=== PATIENT | female | born 1930 | race American Indian/Alaskan Native ===

== ENCOUNTER 2017-02-03 09:08 | Emergency (ER) | payer MEDICARE ==
[2017-02-03 12:20] LABS: Basophils # (Auto) 0.1 K/mm3 (0.0-0.1); Eosinophils # (Auto) 0.2 K/mm3 (0.0-0.4); Eosinophils % (Auto) 1.3 % (0.0-4.3); Hematocrit 45.6 % (30.3-42.9); Hemoglobin 14.7 gm/dl (10.1-14.3); Lymphocytes # (Auto) 1.4 K/mm3 (1.2-5.4); Lymphocytes % (Auto) 11.8 % (13.4-35.0); Mean Corpuscular HGB Conc 32 % (30-34); Mean Corpuscular Hemoglobin 31 pg (28-32); Mean Corpuscular Volume 96 fl (79-97); Monocytes # (Auto) 0.9 K/mm3 (0.0-0.8); Monocytes % (Auto) 7.9 % (0.0-7.3); Platelet Count 142 K/mm3 (140-440); Red Blood Count 4.76 M/mm3 (3.65-5.03); Red Cell Distribution Width 15.7 % (13.2-15.2)
[2017-02-03 12:30] LABS: INR 1.08 (0.87-1.13)
[2017-02-03 12:31] LABS: Partial Thromboplastin Time 25.8 Sec. (24.2-36.6)
[2017-02-03] MEDS ORDERED: MOTRIN PO ONE (12:42)
[2017-02-03] MEDS ORDERED: NORCO PO ONE (12:42)
--- NOTE | 2017-02-03 12:49 | Emergency Department Report ---
HPI - General Chief Complaint: Earache Time Seen by Provider: 02/03/17 11:29 - HPI HPI: Room 5 The patient is an 86-year-old female presented with a chief complaint of left ear pain. The patient states since last night she developed throbbing pain in her left ear. Patient states that also hurts when she chews and she has a sore throat when she swallows. Patient was to chronic cough from her COPD. Patient denies any history of fever. Patient denies any recent trauma. Patient admitted to epistaxis earlier this morning. The patient currently gives her pain score of 10/10 Location: Left ear, throat Duration: Constant since last night Quality: Throbbing Severity: 10/10 Modifying factors: [see above] Context: [see above] Mode of transportation: [not driving] ED Past Medical Hx - Past Medical History Hx Hypertension: Yes Hx Congestive Heart Failure: Yes Hx COPD: Yes (2 L home O2) Additional medical history: Coronary artery disease - Surgical History Past Surgical History?: Yes Additional Surgical History: LEFT HIP REPLACEMENT. OPEN HEART SURGERY=3 BLOCKAGES - Family History Family history: no significant - Social History Smoking Status: Former Smoker (none since 1994) Substance Use Type: None - Medications Home Medications: Home Medications Medication Instructions Recorded Confirmed Last Taken Type Amoxicillin [Amoxicillin 250 MG/5 500 mg PO BID #140 ml 02/03/17 Unknown Rx Ml] HYDROcodone/ACETAMINOPHEN [Lortab 15 ml PO Q6H PRN #300 ml 02/03/17 Unknown Rx 10 mg-300 mg per 15 ML ORAL LIQ] ED Review of Systems ROS: Stated complaint: L SIDE FACE PAIN Other details as noted in HPI Constitutional: denies: fever ENT: ear pain, throat pain, epistaxis Respiratory: cough Physical Exam - Physical Exam Vital Signs: Vital Signs 02/03/17 09:41 Temperature 98.0 F Pulse Rate 94 H Respiratory 18 Rate Blood Pressure 159/87 O2 Sat by Pulse 98 Oximetry Physical Exam: GENERAL: The patient is well-developed well-nourished female lying on stretcher not appearing to be in acute distress. [] HEENT: Normocephalic. Atraumatic. Extraocular motions are intact. Patient has moist mucous membranes. TMs clear bilaterally. No evidence of erythema in the pharynx visualized NECK: Supple. No meningitic signs are noted. There is tender left submandibular lymphadenopathy CHEST/LUNGS: Clear to auscultation. There is no respiratory distress noted. HEART/CARDIOVASCULAR: Regular. There is no tachycardia. There is no gallop rub or murmur. ABDOMEN: Abdomen is soft, nontender. Patient has normal bowel sounds. There is no abdominal distention. SKIN: There is no rash. There is no edema. There is no diaphoresis. NEURO: The patient is awake, alert, and oriented. The patient is cooperative.The patient has normal speech MUSCULOSKELETAL: There is no evidence of acute injury. ED Course Vital Signs 02/03/17 09:41 Temperature 98.0 F Pulse Rate 94 H Respiratory 18 Rate Blood Pressure 159/87 O2 Sat by Pulse 98 Oximetry ED Medical Decision Making - Lab Data Result diagrams: 02/03/17 11:46 Laboratory Tests 02/03/17 02/03/17 02/03/17 11:46 11:46 11:46 WBC 11.9 H RBC 4.76 Hgb 14.7 H Hct 45.6 H MCV 96 MCH 31 MCHC 32 RDW 15.7 H Plt Count 142 Lymph % (Auto) 11.8 L [place] % (Auto) 7.9 H Eos % (Auto) 1.3 Baso % (Auto) 1.0 Lymph # 1.4 [place] # 0.9 H Eos # 0.2 Baso # 0.1 Seg Neutrophils % 78.0 H Seg Neutrophils # 9.3 H PT 14.6 INR 1.08 APTT 25.8 Sodium 139 Potassium 3.8 Chloride 98.3 Carbon Dioxide 27 Anion Gap 18 BUN 25 H Creatinine 0.8 Estimated GFR > 60 BUN/Creatinine Ratio 31 Glucose 95 Calcium 9.5 Total Bilirubin 0.70 Direct Bilirubin 0.2 Indirect Bilirubin 0.5 AST 24 ALT 15 Alkaline Phosphatase 77 Total Protein 6.9 Albumin 3.7 L Albumin/Globulin Ratio 1.2 - Differential Diagnosis otitis media, pharyngitis, TMJ syndrome Critical care attestation.: If time is entered above; I have spent that time in minutes in the direct care of this critically ill patient, excluding procedure time. ED Disposition Clinical Impression: Left ear pain, Sore throat Disposition: DC-01 TO HOME OR SELFCARE Is pt being admited?: No Does the pt Need Aspirin: No Condition: Stable Instructions: Earache (ED) Additional Instructions: Return to the emergency department immediately should you develop worsening symptoms, fever, inability to tolerate food or liquid or any other concerns. 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 Please follow up with her for further evaluation) Time of Disposition: 12:51
[2017-02-03 12:50] LABS: Alanine Aminotransferase 15 units/L (7-56); Albumin 3.7 g/dL (3.9-5); BUN/Creatinine Ratio 31; Bilirubin,Direct 0.2 mg/dL (0-0.2); Blood Urea Nitrogen 25 mg/dL (7-17); Calcium 9.5 mg/dL (8.4-10.2); Hemolysis Index 29
[2017-02-03 13:25] VITALS: BP 158/86
== END 2017-02-03 14:07 | disposition home or self-care (01) ==
LOC: ED 09:08
DX: H92.02 Otalgia, left ear (principal); J02.9 Acute pharyngitis, unspecified; I10 Essential (primary) hypertension; I50.9 Heart failure, unspecified; J44.9 Chronic obstructive pulmonary disease, unspecified; I25.10 Atherosclerotic heart disease of native coronary artery without angina pectoris; Z87.891 Personal history of nicotine dependence
CPT/HCPCS: 36415; 80048; 80074; 85025; 85610; 85730; 99283